=== PATIENT | female | born 1965 | race Caucasian/White ===

== ENCOUNTER → 2018-06-14 | Outpatient (REF) ==
[2014-05-02 16:00] VITALS: BMI 41.6
[~2018-06-14] MED LIST: AMLO-101; AMLO-125 PO; CALC-634 PO; CEPH-13 PO; CODE118S5 PO; DEPO; ETON68IM SQ; IBUP-2707; IBUP-56 PO; INSU100C14 SQ; INSU300I SQ; JUNUVIA; KET10 PO; LACT1CAP6 PO; LANI; LEVI SUBQ; LOR5/325 PO; LOSA50TA80 PO; METF-450 PO; METF-452 PO; METO100T20 PO; METO50TA19 PO; MULT1CAP59; NOVOLOG; PARO-242; PARO-243 PO; PHEN-580; PRAV40TA78 PO; SIMV-49 PO; SIMV-54 PO; SULF-198 PO; TUJEO SQ; ZINC50TA42
--- NOTE | 2018-06-14 15:16 | RADIOLOGY IMAGING REPORT ---
FACILITY: [facility] - [place] PATIENT NAME: Vicki Dowd : 1965 MR: [id number] V: [id number] EXAM DATE: ORDERING PHYSICIAN: CARLOS PRADHAN TECHNOLOGIST: [place] [facility] [place]: Vicki Dowd : 1965 Visit/Account:[id number] Date of Sevice: 06/14/2018 SHOULDER MIN 2 VIEWS RIGHT HISTORY: Chronic pain Additional history: None COMPARISON: None. FINDINGS: Small specks are seen in the inferomedial and superolateral aspects of the humeral head. Humeral hea d appears high riding decreased space between the head and the acromion process. IMPRESSION: Mild right glenohumeral osteoarthropathy. Findings suspicious for rotator cuff tear. Report Dictated By: Randy Ridley MD at 06/14/2018 3:07 PM Report E-Signed By: Randy Ridley MD at 06/14/2018 3:11 PM WSN:[email or web address]
== END ==
LOC: RAD 14:01
PROVIDERS: ATTEND Orthopaedic Surgery Orthopaedic Surgery of the Spine
DX: M25.511 Pain in right shoulder (principal)